=== PATIENT | male | born 1970 | race Caucasian/White ===

== ENCOUNTER 2016-09-19 16:13 | Emergency (ER) | payer OTHER ==
[~2016-09-19] VITALS: Ht 165.1 cm; Wt 63.5 kg
[2016-09-19 16:25] VITALS: BP 149/87
[2016-09-19] MEDS ORDERED: DEXAMETHASONE 4 MG TABLET PO STA (17:04)
[2016-09-19] MEDS ORDERED: ALBUTEROL/IPRATROPIUM 2.5MG/0.5MG, 3 ML ONE (17:17)
[2016-09-19] MEDS ORDERED: ALBUTEROL/IPRATROPIUM 2.5MG/0.5MG, 3 ML NPPB ONE (17:30)
== END 2016-09-19 17:18 | disposition home or self-care (01) ==
LOC: ED 17:12
DX: B09 Unspecified viral infection characterized by skin and mucous membrane lesions (principal); B34.9 Viral infection, unspecified
CPT/HCPCS: 99283